=== PATIENT | male | born 1965 | race African-American/Black ===

== ENCOUNTER 2020-09-25 11:13 | Emergency (ER) | payer MEDICARE, MEDICAID ==
[~2020-09-25] VITALS: Ht 175.3 cm; Wt 70.5 kg
[~2020-09-25 11:13] MED LIST: TAMS0.4C32 PO
[2020-09-25] MEDS ORDERED: HYDROmorphone 2 MG/ML VIAL IM ONE (12:00)
[2020-09-25] MEDS ORDERED: ONDANSETRON HCL 4 MG/2 ML VIAL IM ONE (12:00)
[2020-09-25] MEDS ORDERED: LIDOCAINE 1% 10 ML VIAL SQ ONE (12:00)
[2020-09-25] MEDS ORDERED: CefTRIAXone 1 GM/DEXTROSE 50 ML IV ONE (12:15)
[2020-09-25 13:45] VITALS: BP 137/87
== END 2020-09-25 14:42 | disposition home or self-care (01) ==
LOC: EMS 11:22
DX: L02.31 Cutaneous abscess of buttock (principal); F17.210 Nicotine dependence, cigarettes, uncomplicated
CPT/HCPCS: 10060; 87070; 96365; 96372; 99284; J0696; J1170; J2405; J3490; 87205

== ENCOUNTER 2020-09-27 13:27 | Emergency (ER) | payer MEDICARE, MEDICAID ==
[~2020-09-27] VITALS: Ht 188 cm; Wt 65.9 kg
[2020-09-27 16:28] VITALS: BP 147/80
== END 2020-09-27 16:30 | disposition home or self-care (01) ==
LOC: EMS 13:35
DX: Z48.01 Encounter for change or removal of surgical wound dressing (principal); F17.210 Nicotine dependence, cigarettes, uncomplicated
CPT/HCPCS: 99281; Z7502

== ENCOUNTER 2020-09-28 08:03 | Emergency (ER) | payer MEDICARE, MEDICAID ==
[~2020-09-28] VITALS: Ht 185.4 cm; Wt 65.9 kg
[2020-09-28 08:09] VITALS: BP 131/64
== END 2020-09-28 09:18 | disposition home or self-care (01) ==
LOC: EMS 08:03
DX: K61.1 Rectal abscess (principal); F17.210 Nicotine dependence, cigarettes, uncomplicated
CPT/HCPCS: 99281; Z7502

== ENCOUNTER 2020-10-29 12:18 | Inpatient (IN) | payer MEDICARE, MEDICAID ==
[~2020-10-29] VITALS: Ht 188 cm; Wt 71.7 kg
[2020-10-29] MEDS ORDERED: SODIUM CHLORIDE 0.9% 2,000 ML IV ONE (12:45)
[2020-10-29] MEDS ORDERED: TAMS-13 PO (12:47)
[2020-10-29 13:19] LABS: GLUCOSE,POINT OF CARE 118 MG/DL (70-110)
[2020-10-29 13:19] LABS: EOSINOPHILS % (AUTO) 0 % (1.0-6.0); HEMATOCRIT 32.1 % (41-53); HEMOGLOBIN 10.8 g/dL (13.5-17.5); LYMPHOCYTES # (AUTO) 0.5 K/uL (1.0-4.8); LYMPHOCYTES % (AUTO) 3.2 % (22.0-44.0); MEAN CORPUSCULAR HEMOGLOBIN 36.5 pg (26.0-34.0); MEAN CORPUSCULAR HGB CONC 33.6 G/dL (31.0-37.0); MEAN CORPUSCULAR VOLUME 109 fL (80-100); MONOCYTES # (AUTO) 0.6 K/uL (0.1-1.0); MONOCYTES % (AUTO) 3.7 % (2.0-9.0); NEUTROPHILS # (AUTO) 14.7 K/uL (1.8-7.7); PLATELET COUNT (AUTO) 170 K/uL (150-450); RED BLOOD CELL COUNT(AUTO) 2.95 MIL/uL (4.50-5.90)
[2020-10-29 13:20] LABS: NEUTROPHILS % (AUTO) 93.1 % (40.0-70.0)
[2020-10-29 13:29] LABS: ANION GAP 13 mmol/L (8-16); CALCIUM, TOTAL 7.9 mg/dL (8.8-10.5); CARBON DIOXIDE 21 mmol/L (22-29); CHLORIDE 98 mmol/L (98-107); CREATININE 2.58 mg/dL (0.60-1.30); GLOMERULAR FILTR. RATE CALC 31 mL/min (>60); GLUCOSE,RANDOM 119 mg/dL (70-110); POTASSIUM 3.3 mmol/L (3.5-5.1); SODIUM SERUM 132 mmol/L (136-145); UREA NITROGEN, BLOOD 49 mg/dL (7-18)
[2020-10-29 13:35] LABS: ALANINE AMINOTRANSFERASE 41 U/L (12-78); ALKALINE PHOSPHATASE 67 U/L (46-116); ASPARTATE AMINOTRANSFERASE 30 U/L (15-37); BILIRUBIN,TOTAL 1.7 mg/dL (0.1-1.0); LIPASE < 10 U/L (73-393); TOTAL PROTEIN, SERUM 6.8 g/dL (6.4-8.2)
[2020-10-29 13:41] LABS: COVID AG,FIA SOURCE NASOPHARYNGEAL
[2020-10-29 13:42] LABS: LACTIC ACID 1.4 mmol/L (0.4-2.0)
[2020-10-29] MEDS ORDERED: VANCOMYCIN HCL 1.5 GM in DEXTROSE 5%-WATER 250 ML IV ONE (13:45)
[2020-10-29] MEDS ORDERED: PIPERACILLIN/TAZO 3.375 GM/D5W 50 ML IV ONE (13:45)
[2020-10-29 14:41] LABS: INFLUENZA TYPE A NEGATIVE FOR TYPE A (NEGATIVE); INFLUENZA TYPE B NEGATIVE FOR TYPE B (NEGATIVE)
[2020-10-29 15:26] LABS: APPEARANCE,URINE CLOUDY (CLEAR); BILIRUBIN,URINE NEGATIVE (NEGATIVE); GLUCOSE, URINE (UA) NEGATIVE (NEGATIVE); KETONES,URINE NEGATIVE (NEGATIVE); LEUKOCYTE ESTERASE ,URINE MODERATE (NEGATIVE); NITRATE,URINE NEGATIVE (NEGATIVE); OCCULT BLOOD,URINE MODERATE (NEGATIVE); PH,URINE 5.5 (5.0-8.0); PROTEIN,URINE TRACE (NEGATIVE)
[2020-10-29] MEDS ORDERED: AZITHROMYCIN 500 MG/NS 250 ML IV ONE (15:30)
[2020-10-29 15:33] LABS: BACTERIA,URINE Few /HPF (None Seen); RBC,URINE 0-2 /HPF (0-2); SQUAMOUS EPITHELIAL CELL,UR Few /LPF (None Seen); WBC,URINE 26-50 /HPF (0-5)
[2020-10-29] MEDS ORDERED: ACETAMINOPHEN 325 MG TABLET PO PRN ×2 (15:45→16:00)
[2020-10-29] MEDS ORDERED: ONDANSETRON HCL 4 MG/2 ML VIAL IVP PRN ×2 (15:45→16:00)
[2020-10-29] MEDS ORDERED: 0.9% SODIUM CHLORIDE 10 ML SYRINGE IVP PRN (15:45)
[2020-10-29] MEDS ORDERED: BISACODYL 10 MG RECTAL RECTAL SUPPOSITORY PR PRN (16:00)
[2020-10-29] MEDS ORDERED: MAGNESIUM HYDROXIDE SUSPENSION 30 ML UDCUP PO PRN (16:00)
[2020-10-29] MEDS ORDERED: SODIUM CHLORIDE 0.9% 1,000 ML IV ONE (16:00)
[2020-10-29] MEDS ORDERED: *CLINICAL-LEVOFLOXACIN IVPB DOSING CLINICAL ONE (16:00)
[2020-10-29] MEDS ORDERED: HYDROCODONE/ACETAMINOPHEN 5-325 MG TABLET PO PRN (16:00)
[2020-10-29] MEDS ORDERED: MORPHINE SULFATE 2 MG/ML SYRINGE IVP PRN (16:00)
[2020-10-29] MEDS: HEPARIN SODIUM,PORCINE 5,000 UNITS/ML VIAL SQ SCH (16:47)
[2020-10-29 17:30] VITALS: BP 99/51
[2020-10-29] MEDS: LEVOFLOXACIN 750 MG/D5% WATER 150 ML IV SCH (18:28)
[2020-10-29] MEDS ORDERED: INFLUENZA VIRUS VACCINE QVS 2020-21 (6MO+)/PF 60 MCG/0.5 ML SYRINGE IM ONE (19:15)
[2020-10-29 19:45] VITALS: BP 94/54
[2020-10-29] MEDS: DOCUSATE SODIUM 100 MG CAPSULE PO SCH (21:16)
[2020-10-29] MEDS: PIPERACILLIN/TAZO 3.375 GM/D5W 50 ML IV SCH (22:50)
[2020-10-29] MEDS: ZOLPIDEM TARTRATE 5 MG TABLET PO PRN (22:56)
[2020-10-29 23:45] VITALS: BP 101/54
[2020-10-30] VITALS (7 sets, daily range): BP systolic 87–102; BP diastolic 46–52
[2020-10-30] MEDS: HEPARIN SODIUM,PORCINE 5,000 UNITS/ML VIAL SQ SCH ×4 (00:07→23:00)
[2020-10-30] MEDS: PIPERACILLIN/TAZO 3.375 GM/D5W 50 ML IV SCH ×2 (04:22→11:05)
[2020-10-30 06:06] LABS: BASOPHILS % (AUTO) 0.1 % (0.0-2.0); EOSINOPHILS % (AUTO) 0 % (1.0-6.0); HEMOGLOBIN 8.5 g/dL (13.5-17.5); LYMPHOCYTES # (AUTO) 1.1 K/uL (1.0-4.8); LYMPHOCYTES % (AUTO) 5.4 % (22.0-44.0); MEAN CORPUSCULAR HEMOGLOBIN 36.8 pg (26.0-34.0); MEAN CORPUSCULAR HGB CONC 34.1 G/dL (31.0-37.0); MEAN CORPUSCULAR VOLUME 108 fL (80-100); MONOCYTES # (AUTO) 1.6 K/uL (0.1-1.0); NEUTROPHILS # (AUTO) 17.5 K/uL (1.8-7.7); PLATELET COUNT (AUTO) 153 K/uL (150-450); RED BLOOD CELL COUNT(AUTO) 2.31 MIL/uL (4.50-5.90); RED CELL DISTRIBUTION WIDTH 14.8 % (11.5-14.5)
[2020-10-30 06:19] LABS: CALCIUM, TOTAL 7.1 mg/dL (8.8-10.5); CREATININE 2.4 mg/dL (0.60-1.30)
[2020-10-30 06:40] LABS: POTASSIUM 2.7 mmol/L (3.5-5.1)
[2020-10-30 07:03] LABS: NEUTROPHILS % (AUTO) 86.5 % (40.0-70.0)
[2020-10-30] MEDS ORDERED: POTASSIUM CHLORIDE 20 MEQ ER TABLET PO ONE (08:00)
[2020-10-30] MEDS: DOCUSATE SODIUM 100 MG CAPSULE PO SCH ×2 (08:36→21:00)
[2020-10-30] MEDS: TAMSULOSIN HCL 0.4 MG CAPSULE PO SCH (08:36)
[2020-10-30] MEDS: PANTOPRAZOLE SODIUM 40 MG DR TABLET PO SCH (08:36)
[2020-10-30] MEDS: PIPERACILLIN SODIUM/TAZOBACTAM 2.25 GM in DEXTROSE 5%-WATER 50 ML IV SCH ×2 (15:56→21:04)
[2020-10-30] MEDS: ZOLPIDEM TARTRATE 5 MG TABLET PO PRN (23:00)
[2020-10-31 00:12] VITALS: BP 108/58
[2020-10-31] MEDS: PIPERACILLIN SODIUM/TAZOBACTAM 2.25 GM in DEXTROSE 5%-WATER 50 ML IV SCH ×4 (04:08→21:56)
[2020-10-31 04:47] VITALS: BP 103/50
[2020-10-31 06:59] LABS: BASOPHILS % (AUTO) 0.3 % (0.0-2.0); EOSINOPHILS % (AUTO) 0.3 % (1.0-6.0); HEMATOCRIT 25.8 % (41-53); HEMOGLOBIN 8.8 g/dL (13.5-17.5); LYMPHOCYTES # (AUTO) 1.3 K/uL (1.0-4.8); LYMPHOCYTES % (AUTO) 8.1 % (22.0-44.0); MEAN CORPUSCULAR HEMOGLOBIN 36.8 pg (26.0-34.0); MEAN CORPUSCULAR HGB CONC 33.9 G/dL (31.0-37.0); MEAN CORPUSCULAR VOLUME 109 fL (80-100); MONOCYTES # (AUTO) 1.2 K/uL (0.1-1.0); MONOCYTES % (AUTO) 7.9 % (2.0-9.0); NEUTROPHILS # (AUTO) 13.1 K/uL (1.8-7.7); NEUTROPHILS % (AUTO) 83.4 % (40.0-70.0); PLATELET COUNT (AUTO) 169 K/uL (150-450); RED BLOOD CELL COUNT(AUTO) 2.38 MIL/uL (4.50-5.90); RED CELL DISTRIBUTION WIDTH 14.8 % (11.5-14.5)
[2020-10-31 07:24] LABS: CALCIUM, TOTAL 7.4 mg/dL (8.8-10.5); CREATININE 2.33 mg/dL (0.60-1.30); POTASSIUM 3.6 mmol/L (3.5-5.1)
[2020-10-31 08:27] VITALS: BP 100/51
[2020-10-31] MEDS: DOCUSATE SODIUM 100 MG CAPSULE PO SCH ×2 (09:00→20:14)
[2020-10-31] MEDS: HEPARIN SODIUM,PORCINE 5,000 UNITS/ML VIAL SQ SCH ×3 (09:08→23:11)
[2020-10-31] MEDS: TAMSULOSIN HCL 0.4 MG CAPSULE PO SCH (09:08)
[2020-10-31] MEDS: PANTOPRAZOLE SODIUM 40 MG DR TABLET PO SCH (09:08)
[2020-10-31] MEDS ORDERED: SODIUM CHLORIDE 0.9% 1,000 ML IV ONE (12:00)
[2020-10-31 14:20] VITALS: BP 101/56
[2020-10-31] MEDS: LEVOFLOXACIN 750 MG/D5% WATER 150 ML IV SCH (18:16)
[2020-10-31 19:51] VITALS: BP 115/64
[2020-10-31] MEDS: ZOLPIDEM TARTRATE 5 MG TABLET PO PRN (23:11)
[2020-10-31 23:58] VITALS: BP 117/54
[2020-11-01] MEDS: PIPERACILLIN SODIUM/TAZOBACTAM 2.25 GM in DEXTROSE 5%-WATER 50 ML IV SCH ×4 (03:22→20:08)
[2020-11-01 04:17] VITALS: BP 116/60
[2020-11-01 06:45] LABS: HEMATOCRIT 24.3 % (41-53); HEMOGLOBIN 8.4 g/dL (13.5-17.5); MEAN CORPUSCULAR HEMOGLOBIN 37.5 pg (26.0-34.0); MEAN CORPUSCULAR HGB CONC 34.7 G/dL (31.0-37.0); MEAN CORPUSCULAR VOLUME 108 fL (80-100); PLATELET COUNT (AUTO) 185 K/uL (150-450); RED BLOOD CELL COUNT(AUTO) 2.25 MIL/uL (4.50-5.90); RED CELL DISTRIBUTION WIDTH 14.7 % (11.5-14.5)
[2020-11-01 06:46] LABS: BAND NEUTROPHILS % (MANUAL) 0 % (0-5)
[2020-11-01 07:05] LABS: CALCIUM, TOTAL 7.4 mg/dL (8.8-10.5); CREATININE 2.02 mg/dL (0.60-1.30); POTASSIUM 3.6 mmol/L (3.5-5.1)
[2020-11-01 07:40] VITALS: BP 113/52
[2020-11-01] MEDS: HEPARIN SODIUM,PORCINE 5,000 UNITS/ML VIAL SQ SCH ×3 (08:16→23:26)
[2020-11-01] MEDS: PANTOPRAZOLE SODIUM 40 MG DR TABLET PO SCH (08:16)
[2020-11-01] MEDS: DOCUSATE SODIUM 100 MG CAPSULE PO SCH ×2 (08:16→20:08)
[2020-11-01] MEDS: TAMSULOSIN HCL 0.4 MG CAPSULE PO SCH (08:16)
[2020-11-01] MEDS ORDERED: SODIUM CHLORIDE 0.9% 250 ML IV ONE (09:29)
[2020-11-01 12:25] VITALS: BP 146/94
[2020-11-01 12:54] LABS: LYMPHOCYTES % (MANUAL) 11 % (22-44); MONOCYTES % (MANUAL) 7 % (2-9); SEGMENTED NEUTROPHILS % 82 % (40-70)
[2020-11-01 16:00] VITALS: BP 111/61
[2020-11-01 19:17] VITALS: BP 105/57
[2020-11-01] MEDS: ZOLPIDEM TARTRATE 5 MG TABLET PO PRN (20:08)
[2020-11-01] MEDS: SODIUM CHLORIDE 0.9% 1,000 ML IV SCH (20:54)
[2020-11-02 00:23] VITALS: BP 128/63
[2020-11-02] MEDS: PIPERACILLIN SODIUM/TAZOBACTAM 2.25 GM in DEXTROSE 5%-WATER 50 ML IV SCH ×3 (04:00→16:50)
[2020-11-02 04:14] VITALS: BP 126/65
[2020-11-02 07:56] VITALS: BP 115/59
[2020-11-02] MEDS: TAMSULOSIN HCL 0.4 MG CAPSULE PO SCH (08:46)
[2020-11-02] MEDS: PANTOPRAZOLE SODIUM 40 MG DR TABLET PO SCH (08:46)
[2020-11-02] MEDS: DOCUSATE SODIUM 100 MG CAPSULE PO SCH (08:47)
[2020-11-02] MEDS: HEPARIN SODIUM,PORCINE 5,000 UNITS/ML VIAL SQ SCH ×2 (08:47→16:49)
[2020-11-02] MEDS ORDERED: METR500 PO (10:43)
[2020-11-02] MEDS ORDERED: LEVO750T68 PO (10:43)
[2020-11-02] MEDS: SODIUM CHLORIDE 0.9% 1,000 ML IV SCH (10:55)
[2020-11-02 11:18] VITALS: BP 114/56
[2020-11-02 11:35] LABS: CALCIUM, TOTAL 7.4 mg/dL (8.8-10.5); CREATININE 1.85 mg/dL (0.60-1.30); POTASSIUM 3.4 mmol/L (3.5-5.1)
[2020-11-02] MEDS ORDERED: POTASSIUM CHLORIDE 20 MEQ ER TABLET PO ONE (11:45)
[2020-11-02 15:39] VITALS: BP 115/61
[2020-11-02] MEDS ORDERED: ZOLP-280 PO (16:26)
== END 2020-11-02 18:12 | disposition home or self-care (01) | DRG 871 ==
LOC: EMS 12:18 → 5N 15:51 → 5S 10-30 21:42
PROVIDERS: ADMIT Internal Medicine; ATTEND Internal Medicine
DX: A41.51 Sepsis due to Escherichia coli [E. coli] (principal); J18.9 Pneumonia, unspecified organism; E44.0 Moderate protein-calorie malnutrition; N17.9 Acute kidney failure, unspecified; K61.1 Rectal abscess; K86.1 Other chronic pancreatitis; N39.0 Urinary tract infection, site not specified; E87.1 Hypo-osmolality and hyponatremia; D63.8 Anemia in other chronic diseases classified elsewhere; Z20.822 Contact with and (suspected) exposure to COVID-19; E87.6 Hypokalemia; N40.0 Benign prostatic hyperplasia without lower urinary tract symptoms; B96.20 Unspecified Escherichia coli [E. coli] as the cause of diseases classified elsewhere; F17.210 Nicotine dependence, cigarettes, uncomplicated
CPT/HCPCS: 71250; 72192; 74150; 83605; 87040; 87086; 87205; 87426; 87804; 93005; 99291; G0378; G0480; J0456; J1644; J1956; J2543; J3370; J7030; J7050; J7060; 36415-L1; 36415-TC; 71045-TC; U0003

== ENCOUNTER 2021-04-12 12:13 | Inpatient (IN) | payer MEDICARE, MEDICAID ==
[~2021-04-12] VITALS: Ht 188 cm; Wt 73.5 kg
[~2021-04-12 12:13] MED LIST changes: +LEVO250T75 PO; +MAGN400T7 PO; -TAMS0.4C32 PO
[2021-04-12] MEDS ORDERED: KETOROLAC TROMETHAMINE 30 MG/ML VIAL IVP ONE (13:45)
[2021-04-12 14:26] LABS: BASOPHILS % (AUTO) 0.3 % (0.0-2.0); EOSINOPHILS % (AUTO) 0.1 % (1.0-6.0); HEMATOCRIT 30.3 % (41-53); HEMOGLOBIN 10.2 g/dL (13.5-17.5); LYMPHOCYTES # (AUTO) 0.9 K/uL (1.0-4.8); LYMPHOCYTES % (AUTO) 12.1 % (22.0-44.0); MEAN CORPUSCULAR HEMOGLOBIN 38.5 pg (26.0-34.0); MEAN CORPUSCULAR HGB CONC 33.8 G/dL (31.0-37.0); MEAN CORPUSCULAR VOLUME 114 fL (80-100); MONOCYTES # (AUTO) 0.9 K/uL (0.1-1.0); MONOCYTES % (AUTO) 11.8 % (2.0-9.0); NEUTROPHILS # (AUTO) 5.6 K/uL (1.8-7.7); NEUTROPHILS % (AUTO) 75.7 % (40.0-70.0); PLATELET COUNT (AUTO) 118 K/uL (150-450); RED BLOOD CELL COUNT(AUTO) 2.66 MIL/uL (4.50-5.90); RED CELL DISTRIBUTION WIDTH 14.5 % (11.5-14.5)
[2021-04-12 14:27] LABS: ANION GAP 6 mmol/L (8-16); CALCIUM, TOTAL 8.7 mg/dL (8.8-10.5); CARBON DIOXIDE 25 mmol/L (22-29); CHLORIDE 101 mmol/L (98-107); CREATININE 1.43 mg/dL (0.60-1.30); GLOMERULAR FILTR. RATE CALC > 60 mL/min (>60); GLUCOSE,RANDOM 108 mg/dL (70-110); POTASSIUM 4.1 mmol/L (3.5-5.1); SODIUM SERUM 132 mmol/L (136-145); UREA NITROGEN, BLOOD 11 mg/dL (7-18)
[2021-04-12 14:32] LABS: ALANINE AMINOTRANSFERASE 18 U/L (12-78); ALBUMIN 2.5 g/dL (3.4-5.0); ALKALINE PHOSPHATASE 69 U/L (46-116); ASPARTATE AMINOTRANSFERASE 21 U/L (15-37); BILIRUBIN,TOTAL 1.2 mg/dL (0.1-1.0); TOTAL PROTEIN, SERUM 7.4 g/dL (6.4-8.2)
[2021-04-12] MEDS ORDERED: SODIUM CHLORIDE 0.9% 1,000 ML IV ONE (15:00)
[2021-04-12 15:08] LABS: APPEARANCE,URINE CLOUDY (CLEAR); GLUCOSE, URINE (UA) NEGATIVE (NEGATIVE); KETONES,URINE TRACE mg/dL (NEGATIVE); LEUKOCYTE ESTERASE ,URINE LARGE (NEGATIVE); NITRATE,URINE POSITIVE (NEGATIVE); OCCULT BLOOD,URINE MODERATE (NEGATIVE); PH,URINE 5.5 (5.0-8.0); PROTEIN,URINE TRACE (NEGATIVE)
[2021-04-12] MEDS ORDERED: SODIUM CHLORIDE 0.9% 100 ML ONE (15:18)
[2021-04-12] MEDS ORDERED: IOHEXOL 350 MG/ML 100 ML VIAL ONE (15:18)
[2021-04-12 15:21] LABS: BILIRUBIN,URINE PRELIM. POSITIVE (NEGATIVE)
[2021-04-12 16:02] LABS: RBC,URINE 0-2 /HPF (0-2); WBC,URINE 26-50 /HPF (0-5)
[2021-04-12 16:03] LABS: BACTERIA,URINE Many /HPF (None Seen); SQUAMOUS EPITHELIAL CELL,UR Rare /LPF (None Seen)
[2021-04-12 16:04] LABS: FINE GRANULAR CASTS,URINE 0-2 /LPF (None Seen)
[2021-04-12] MEDS ORDERED: VANCOMYCIN HCL 1 GM/D5% WATER 200 ML IV ONE (16:30)
[2021-04-12] MEDS ORDERED: PIPERACILLIN/TAZO 3.375 GM/D5W 50 ML IV ONE (16:30)
[2021-04-12 16:58] LABS: LIPASE 18 U/L (73-393)
[2021-04-12] MEDS ORDERED: LIDOCAINE/PF 2% 5 ML SYRINGE IVP ONE (18:14)
[2021-04-12] MEDS ORDERED: LIDOCAINE 1% 10 ML VIAL ONE (18:15)
[2021-04-12] MEDS ORDERED: LORazepam 2 MG/ML VIAL IVP ONE (18:15)
[2021-04-12] MEDS ORDERED: MORPHINE SULFATE 4 MG/ML SYRINGE IVP ONE (18:15)
[2021-04-12] MEDS ORDERED: SODIUM CHLORIDE 0.45% 1,000 ML IV ONE (18:30)
[2021-04-12] MEDS ORDERED: BISACODYL 10 MG RECTAL RECTAL SUPPOSITORY PR PRN (18:30)
[2021-04-12] MEDS ORDERED: ONDANSETRON HCL 4 MG/2 ML VIAL IVP PRN (18:30)
[2021-04-12] MEDS ORDERED: POVIDONE-IODINE 10% 15 ML SOLUTION UD ONE (18:31)
[2021-04-12 18:35] LABS: AMPHET/METH SCREEN,URINE NEGATIVE (NEGATIVE); BARBITURATE SCREEN, URINE NEGATIVE (NEGATIVE); BENZODIAZEPINES SCREEN,URINE NEGATIVE (NEGATIVE); CANNABINOID SCREEN,URINE NEGATIVE (NEGATIVE); COCAINE SCREEN,URINE NEGATIVE (NEGATIVE); METHADONE SCREEN, URINE NEGATIVE (NEGATIVE); OPIATE SCREEN,URINE NEGATIVE (NEGATIVE)
[2021-04-12 18:44] LABS: PHENCYCLIDINE SCREEN,URINE NEGATIVE (NEGATIVE)
[2021-04-12] MEDS: DOCUSATE SODIUM 100 MG CAPSULE PO SCH (21:00)
[2021-04-12 21:27] VITALS: BP 145/75
[2021-04-12] MEDS: ACETAMINOPHEN 325 MG TABLET PO PRN (21:53)
[2021-04-13] MEDS: MORPHINE SULFATE 2 MG/ML SYRINGE IVP PRN ×4 (03:00→22:05)
[2021-04-13] MEDS: PIPERACILLIN/TAZO 3.375 GM/D5W 50 ML IV SCH ×4 (03:35→22:44)
[2021-04-13 04:49] VITALS: BP 108/55
[2021-04-13] MEDS: ACETAMINOPHEN 325 MG TABLET PO PRN (05:01)
[2021-04-13 07:32] LABS: ANION GAP 9 mmol/L (8-16); CALCIUM, TOTAL 7.6 mg/dL (8.8-10.5); CARBON DIOXIDE 23 mmol/L (22-29); CHLORIDE 102 mmol/L (98-107); CREATININE 1.38 mg/dL (0.60-1.30); GLOMERULAR FILTR. RATE CALC > 60 mL/min (>60); GLUCOSE,RANDOM 99 mg/dL (70-110); POTASSIUM 3.7 mmol/L (3.5-5.1); SODIUM SERUM 134 mmol/L (136-145); UREA NITROGEN, BLOOD 13 mg/dL (7-18)
[2021-04-13 08:07] VITALS: BP 95/52
[2021-04-13] MEDS: VANCOMYCIN HCL 750 MG in DEXTROSE 5%-WATER 250 ML IV SCH ×2 (08:08→20:20)
[2021-04-13] MEDS: PANTOPRAZOLE SODIUM 40 MG/VIAL IVP SCH (08:08)
[2021-04-13] MEDS: DOCUSATE SODIUM 100 MG CAPSULE PO SCH ×2 (08:08→20:20)
[2021-04-13] MEDS ORDERED: SODIUM CHLORIDE 0.9% 500 ML IV ONE (08:11)
[2021-04-13] MEDS: MULTIVITAMINS WITH MINERALS, THERAPEUTIC TABLET PO SCH (09:06)
[2021-04-13] MEDS: MINERAL OIL 30 ML UDCUP PO SCH ×2 (12:55→20:20)
[2021-04-13 15:26] VITALS: BP 107/50
[2021-04-13 19:29] VITALS: BP 95/57
[2021-04-13] MEDS ORDERED: MELATONIN 3 MG TABLET PO PRN (20:45)
[2021-04-13] MEDS ORDERED: MELATONIN 3 MG TABLET PO SCH (21:00)
[2021-04-13 23:21] VITALS: BP 108/65
[2021-04-14] MEDS: MORPHINE SULFATE 2 MG/ML SYRINGE IVP PRN ×4 (02:07→22:22)
[2021-04-14 03:56] VITALS: BP 92/53
[2021-04-14] MEDS: PIPERACILLIN/TAZO 3.375 GM/D5W 50 ML IV SCH ×4 (04:04→22:21)
[2021-04-14 07:21] LABS: CALCIUM, TOTAL 7.7 mg/dL (8.8-10.5); CREATININE 1.55 mg/dL (0.60-1.30); POTASSIUM 3.5 mmol/L (3.5-5.1); VANCOMYCIN,RANDOM 20.5 mcg/mL (25.0-50.0)
[2021-04-14 07:38] VITALS: BP 103/54
[2021-04-14] MEDS: VANCOMYCIN HCL 750 MG in DEXTROSE 5%-WATER 250 ML IV SCH (08:13)
[2021-04-14] MEDS: PANTOPRAZOLE SODIUM 40 MG/VIAL IVP SCH (08:40)
[2021-04-14] MEDS: MULTIVITAMINS WITH MINERALS, THERAPEUTIC TABLET PO SCH (08:40)
[2021-04-14] MEDS: MINERAL OIL 30 ML UDCUP PO SCH ×2 (08:40→19:44)
[2021-04-14] MEDS: DOCUSATE SODIUM 100 MG CAPSULE PO SCH ×2 (08:40→19:44)
[2021-04-14 15:16] VITALS: BP 108/66
[2021-04-14 19:10] VITALS: BP 109/56
[2021-04-14] MEDS: VANCOMYCIN HCL 500 MG in DEXTROSE 5%-WATER 100 ML IV SCH (19:44)
[2021-04-15] MEDS ORDERED: SODIUM CHLORIDE 0.9% 500 ML IV ONE (03:37)
[2021-04-15] MEDS: PIPERACILLIN/TAZO 3.375 GM/D5W 50 ML IV SCH ×2 (03:52→10:20)
[2021-04-15 04:15] VITALS: BP 97/57
[2021-04-15 06:58] LABS: CALCIUM, TOTAL 7.9 mg/dL (8.8-10.5); CREATININE 1.47 mg/dL (0.60-1.30); POTASSIUM 3.6 mmol/L (3.5-5.1)
[2021-04-15 07:04] LABS: BASOPHILS % (AUTO) 0.3 % (0.0-2.0); EOSINOPHILS % (AUTO) 0.5 % (1.0-6.0); HEMATOCRIT 23.8 % (41-53); LYMPHOCYTES % (AUTO) 14.3 % (22.0-44.0); MEAN CORPUSCULAR HEMOGLOBIN 38.2 pg (26.0-34.0); MEAN CORPUSCULAR HGB CONC 33.6 G/dL (31.0-37.0); MEAN CORPUSCULAR VOLUME 114 fL (80-100); MONOCYTES % (AUTO) 14.8 % (2.0-9.0); NEUTROPHILS % (AUTO) 70.1 % (40.0-70.0); PLATELET COUNT (AUTO) 104 K/uL (150-450); RED CELL DISTRIBUTION WIDTH 14.6 % (11.5-14.5)
[2021-04-15 07:37] VITALS: BP 96/48
[2021-04-15] MEDS: VANCOMYCIN HCL 500 MG in DEXTROSE 5%-WATER 100 ML IV SCH (07:56)
[2021-04-15] MEDS: DOCUSATE SODIUM 100 MG CAPSULE PO SCH (08:01)
[2021-04-15] MEDS: PANTOPRAZOLE SODIUM 40 MG/VIAL IVP SCH (08:01)
[2021-04-15] MEDS: MULTIVITAMINS WITH MINERALS, THERAPEUTIC TABLET PO SCH (08:01)
[2021-04-15] MEDS: MORPHINE SULFATE 2 MG/ML SYRINGE IVP PRN (08:01)
[2021-04-15] MEDS: MINERAL OIL 30 ML UDCUP PO SCH (08:01)
[2021-04-15] MEDS ORDERED: BACTDSB PO (08:42)
[2021-04-15] MEDS ORDERED: HYDR-4723 PO (08:58)
== END 2021-04-15 13:35 | disposition home or self-care (01) | DRG 727 ==
LOC: EMS 12:18 → 6N 18:19
PROVIDERS: ADMIT Internal Medicine; ATTEND Internal Medicine
PROC: 0H9AXZZ Drainage of Inguinal Skin, External Approach (ICD-10-PCS; principal; 2021-04-12)
DX: N48.21 Abscess of corpus cavernosum and penis (principal); A41.9 Sepsis, unspecified organism; N17.9 Acute kidney failure, unspecified; N39.0 Urinary tract infection, site not specified; E44.0 Moderate protein-calorie malnutrition; K86.1 Other chronic pancreatitis; F10.10 Alcohol abuse, uncomplicated; Y90.0 Blood alcohol level of less than 20 mg/100 ml; Z20.822 Contact with and (suspected) exposure to COVID-19; K60.3 Anal fistula; K59.00 Constipation, unspecified; K21.9 Gastro-esophageal reflux disease without esophagitis; Z68.20 Body mass index [BMI] 20.0-20.9, adult; Z90.49 Acquired absence of other specified parts of digestive tract; Z79.899 Other long term (current) drug therapy
CPT/HCPCS: 74177; 80048; 80053; 80202; 81001; 83690; 85025; 87040; 87077; 87081; 87086; 87186; 99285; C9113; G0480; J1885; J2060; J2270; J2543; J3370; J3490; J7030; J7040; J7050; J7060; Q9967

== ENCOUNTER 2022-01-06 23:51 | Inpatient (IN) | payer MEDICARE, MEDICAID ==
[~2022-01-06] VITALS: Ht 182.9 cm; Wt 60.8 kg
[~2022-01-06 23:51] MED LIST changes: +AMPI3VIA IV; +FOLI-130 PO; +HYDR-4723 PO; -LEVO250T75 PO; -MAGN400T7 PO; +MULT-1203 PO; +THIA100T80 PO
[2022-01-07 01:33] LABS: BASOPHILS % (AUTO) 0.2 % (0.0-2.0); EOSINOPHILS % (AUTO) 0 % (1.0-6.0); HEMATOCRIT 35.5 % (41-53); HEMOGLOBIN 12.5 g/dL (13.5-17.5); LYMPHOCYTES # (AUTO) 0.7 K/uL (1.0-4.8); LYMPHOCYTES % (AUTO) 9.3 % (22.0-44.0); MEAN CORPUSCULAR HEMOGLOBIN 37.6 pg (26.0-34.0); MEAN CORPUSCULAR HGB CONC 35.1 G/dL (31.0-37.0); MEAN CORPUSCULAR VOLUME 107 fL (80-100); MONOCYTES # (AUTO) 0.8 K/uL (0.1-1.0); MONOCYTES % (AUTO) 10.7 % (2.0-9.0); NEUTROPHILS # (AUTO) 5.8 K/uL (1.8-7.7); NEUTROPHILS % (AUTO) 79.8 % (40.0-70.0); PLATELET COUNT (AUTO) 156 K/uL (150-450); RED BLOOD CELL COUNT(AUTO) 3.32 MIL/uL (4.50-5.90); RED CELL DISTRIBUTION WIDTH 14.3 % (11.5-14.5)
[2022-01-07 01:41] LABS: CALCIUM, TOTAL 9.5 mg/dL (8.8-10.5); CREATININE 1.72 mg/dL (0.60-1.30); POTASSIUM 4.5 mmol/L (3.5-5.1)
[2022-01-07] MEDS ORDERED: SODIUM CHLORIDE 0.9% 1,000 ML IV ONE ×3 (01:45→10:45)
[2022-01-07] MEDS ORDERED: MORPHINE SULFATE 4 MG/ML SYRINGE IVP ONE ×2 (01:45→05:45)
[2022-01-07 01:47] LABS: ALBUMIN 3.6 g/dL (3.4-5.0); BILIRUBIN,TOTAL 1.1 mg/dL (0.1-1.0); TOTAL PROTEIN, SERUM 8.6 g/dL (6.4-8.2)
[2022-01-07 01:52] LABS: PROTHROMBIN TIME 10.6 SEC (9.4-11.6)
[2022-01-07 01:54] LABS: COVID AG,FIA SOURCE NASAL SWAB
[2022-01-07] MEDS ORDERED: ACETAMINOPHEN 500 MG TABLET PO ONE (02:15)
[2022-01-07] MEDS ORDERED: ONDANSETRON HCL 4 MG/2 ML VIAL IVP ONE ×2 (02:15→05:45)
[2022-01-07 05:50] LABS: APPEARANCE,URINE HAZY (CLEAR); BILIRUBIN,URINE NEGATIVE (NEGATIVE); GLUCOSE, URINE (UA) NEGATIVE (NEGATIVE); LEUKOCYTE ESTERASE ,URINE LARGE (NEGATIVE); NITRATE,URINE POSITIVE (NEGATIVE); OCCULT BLOOD,URINE LARGE (NEGATIVE); PROTEIN,URINE TRACE mg/dL (NEGATIVE); SPECIFIC GRAVITIY, URINE 1.013 (1.003-1.030); UROBILINOGEN,URINE <=1.0 mg/dL (<=1.0)
[2022-01-07 06:06] LABS: CALCIUM, TOTAL 8.6 mg/dL (8.8-10.5); CREATININE 1.58 mg/dL (0.60-1.30); POTASSIUM 4.5 mmol/L (3.5-5.1)
[2022-01-07 06:09] LABS: BACTERIA,URINE Many /HPF (None Seen)
[2022-01-07 06:13] LABS: ALBUMIN 2.9 g/dL (3.4-5.0); TOTAL PROTEIN, SERUM 7.1 g/dL (6.4-8.2)
[2022-01-07] MEDS ORDERED: CefTRIAXone 1 GM/DEXTROSE 50 ML IV ONE (06:15)
[2022-01-07] MEDS ORDERED: 0.9% SODIUM CHLORIDE 10 ML SYRINGE IVP PRN ×2 (09:00→10:45)
[2022-01-07] MEDS ORDERED: MORPHINE SULFATE 2 MG/ML SYRINGE IVP PRN (10:45)
[2022-01-07] MEDS ORDERED: DOCUSATE SODIUM 100 MG CAPSULE PO PRN (10:45)
[2022-01-07] MEDS: THIAMINE 100 MG TABLET PO SCH (10:45)
[2022-01-07] MEDS ORDERED: IPRATROPIUM BROMIDE 0.5 MG/2.5 ML NEB SOLUTION NEB PRN (10:45)
[2022-01-07] MEDS ORDERED: ALBUTEROL SULFATE 2.5 MG/0.5 ML NEB SOLUTION NEB PRN (10:45)
[2022-01-07] MEDS ORDERED: BISACODYL 10 MG RECTAL RECTAL SUPPOSITORY PR PRN (10:45)
[2022-01-07] MEDS: MULTIVITAMINS, THERAPEUTIC TABLET PO SCH (10:45)
[2022-01-07] MEDS: ONDANSETRON HCL 4 MG/2 ML VIAL IVP PRN (11:08)
[2022-01-07] MEDS: PANTOPRAZOLE SODIUM 40 MG/VIAL IVP SCH (11:08)
[2022-01-07 11:32] LABS: FREE T4 (FREE THYROXINE) 1.35 ng/dL (0.76-1.46); THYROID STIMULATING HORMONE 1.55 uIU/mL (0.36-3.74)
[2022-01-07] MEDS: MetroNIDAZOLE 500 MG/NACL 100 ML IV SCH ×2 (12:09→20:24)
[2022-01-07 16:27] VITALS: BP 148/78
[2022-01-07 19:34] VITALS: BP 150/76
[2022-01-07] MEDS ORDERED: SODIUM CHLORIDE 0.9% 250 ML IV ONE (20:02)
[2022-01-07] MEDS: ACETAMINOPHEN 325 MG TABLET PO PRN (20:25)
[2022-01-07] MEDS: LACTOBACILLUS ACIDOPHILUS/BULGARICUS TABLET PO SCH (20:25)
[2022-01-07] MEDS ORDERED: LACTOBACILLUS ACIDOPHILUS/BULGARICUS TABLET PO SCH (21:00)
[2022-01-08 03:37] VITALS: BP 110/54
[2022-01-08] MEDS: ACETAMINOPHEN 325 MG TABLET PO PRN ×3 (04:00→21:29)
[2022-01-08] MEDS: MetroNIDAZOLE 500 MG/NACL 100 ML IV SCH (04:01)
[2022-01-08] MEDS: CefTRIAXone 1 GM/DEXTROSE 50 ML IV SCH (05:03)
[2022-01-08] MEDS ORDERED: CefTRIAXone 1 GM/DEXTROSE 50 ML IV SCH (06:00)
[2022-01-08 07:49] VITALS: BP 116/65
[2022-01-08] MEDS: THIAMINE 100 MG TABLET PO SCH (08:32)
[2022-01-08] MEDS: FOLIC ACID 1 MG TABLET PO SCH (08:32)
[2022-01-08] MEDS: PANTOPRAZOLE SODIUM 40 MG/VIAL IVP SCH (08:32)
[2022-01-08] MEDS: MULTIVITAMINS, THERAPEUTIC TABLET PO SCH (08:32)
[2022-01-08] MEDS: PIPERACILLIN/TAZO 3.375 GM/D5W 50 ML IV SCH ×3 (08:33→21:28)
[2022-01-08] MEDS ORDERED: FOLIC ACID 1 MG TABLET PO SCH (09:00)
[2022-01-08] MEDS: LACTOBACILLUS ACIDOPHILUS/BULGARICUS TABLET PO SCH ×2 (11:51→21:00)
[2022-01-08 15:29] VITALS: BP 112/63
[2022-01-08 19:57] VITALS: BP 139/68
[2022-01-08] MEDS: ONDANSETRON HCL 4 MG/2 ML VIAL IVP PRN (21:28)
[2022-01-09] MEDS: PIPERACILLIN/TAZO 3.375 GM/D5W 50 ML IV SCH ×5 (01:00→23:25)
[2022-01-09 04:45] VITALS: BP 104/50
[2022-01-09] MEDS: CefTRIAXone 1 GM/DEXTROSE 50 ML IV SCH (06:33)
[2022-01-09 08:06] VITALS: BP 105/56
[2022-01-09] MEDS: PANTOPRAZOLE SODIUM 40 MG/VIAL IVP SCH (08:46)
[2022-01-09] MEDS: MULTIVITAMINS, THERAPEUTIC TABLET PO SCH (08:47)
[2022-01-09] MEDS: FOLIC ACID 1 MG TABLET PO SCH (08:47)
[2022-01-09] MEDS: LACTOBACILLUS ACIDOPHILUS/BULGARICUS TABLET PO SCH ×2 (08:47→20:20)
[2022-01-09] MEDS: THIAMINE 100 MG TABLET PO SCH (08:47)
[2022-01-09 15:43] VITALS: BP 146/76
[2022-01-09 18:21] LABS: BASOPHILS % (AUTO) 0.4 % (0.0-2.0); HEMATOCRIT 32.8 % (41-53); HEMOGLOBIN 11.2 g/dL (13.5-17.5); LYMPHOCYTES # (AUTO) 1.1 K/uL (1.0-4.8); LYMPHOCYTES % (AUTO) 21.6 % (22.0-44.0); MEAN CORPUSCULAR HEMOGLOBIN 37.4 pg (26.0-34.0); MEAN CORPUSCULAR HGB CONC 34.2 G/dL (31.0-37.0); MEAN CORPUSCULAR VOLUME 109 fL (80-100); MONOCYTES # (AUTO) 0.7 K/uL (0.1-1.0); MONOCYTES % (AUTO) 14.9 % (2.0-9.0); NEUTROPHILS # (AUTO) 3.1 K/uL (1.8-7.7); NEUTROPHILS % (AUTO) 62.1 % (40.0-70.0); RED CELL DISTRIBUTION WIDTH 14.3 % (11.5-14.5)
[2022-01-09 18:37] LABS: CALCIUM, TOTAL 9.2 mg/dL (8.8-10.5); CREATININE 1.49 mg/dL (0.60-1.30); POTASSIUM 4.1 mmol/L (3.5-5.1)
[2022-01-09 18:38] LABS: PLATELET COUNT (AUTO) 141 K/uL (150-450)
[2022-01-09 18:43] LABS: BILIRUBIN,TOTAL 0.4 mg/dL (0.1-1.0); TOTAL PROTEIN, SERUM 7.5 g/dL (6.4-8.2)
[2022-01-09 19:25] VITALS: BP 116/63
[2022-01-09] MEDS: ACETAMINOPHEN 325 MG TABLET PO PRN (20:23)
[2022-01-10 05:07] VITALS: BP 132/74
[2022-01-10] MEDS: CefTRIAXone 1 GM/DEXTROSE 50 ML IV SCH (05:36)
[2022-01-10] MEDS: PIPERACILLIN/TAZO 3.375 GM/D5W 50 ML IV SCH ×2 (06:23→13:00)
[2022-01-10] MEDS: LACTOBACILLUS ACIDOPHILUS/BULGARICUS TABLET PO SCH (08:06)
[2022-01-10] MEDS: MULTIVITAMINS, THERAPEUTIC TABLET PO SCH (08:06)
[2022-01-10] MEDS: PANTOPRAZOLE SODIUM 40 MG/VIAL IVP SCH (08:06)
[2022-01-10] MEDS: FOLIC ACID 1 MG TABLET PO SCH (08:06)
[2022-01-10] MEDS: THIAMINE 100 MG TABLET PO SCH (08:06)
[2022-01-10 08:14] VITALS: BP 136/71
[2022-01-10 08:14] LABS: CALCIUM, TOTAL 8.8 mg/dL (8.8-10.5); CREATININE 1.58 mg/dL (0.60-1.30); POTASSIUM 5.1 mmol/L (3.5-5.1)
== END 2022-01-10 14:57 | disposition home or self-care (01) | DRG 439 ==
LOC: EMS 23:51 → 6N 01-07 10:42 → EMS 01-07 16:07
PROVIDERS: ADMIT Internal Medicine; ATTEND Internal Medicine
DX: K85.90 Acute pancreatitis without necrosis or infection, unspecified (principal); E87.1 Hypo-osmolality and hyponatremia; N39.0 Urinary tract infection, site not specified; N17.9 Acute kidney failure, unspecified; K86.3 Pseudocyst of pancreas; K86.1 Other chronic pancreatitis; E78.5 Hyperlipidemia, unspecified; Z20.822 Contact with and (suspected) exposure to COVID-19; E86.1 Hypovolemia; D53.9 Nutritional anemia, unspecified; G89.4 Chronic pain syndrome; K60.3 Anal fistula; F17.210 Nicotine dependence, cigarettes, uncomplicated
CPT/HCPCS: 74176; 80048; 80053; 81001; 82150; 83605; 83690; 84145; 84439; 84443; 85025; 85610; 85730; 87040; 87077; 87081; 87086; 87205; 93005; 99285; C9113; G0480; J0696; J2270; J2405; J2543; J3490; J7030; J7050